=== PATIENT | male | born 2005 | race Caucasian/White ===

== ENCOUNTER 2024-09-12 04:42 | Emergency (ER) | payer OTHER, BC ==
[~2024-09-12] VITALS: Ht 190.5 cm; Wt 104.3 kg
[2024-09-12 04:53] VITALS: BP_SYST 124; PULSE 81; RESP 18; TEMP 98; O2SAT 98
[2024-09-12] MEDS: DIPHTH,PERTUSS(ACELL),TET VAC 0.5 ML VIAL (Tdap) I.M. ONE (05:20)
[2024-09-12 06:16] VITALS: BP_SYST 123; PULSE 78; RESP 20; TEMP 98; O2SAT 99
== END 2024-09-12 06:16 | disposition home or self-care (01) ==
LOC: SED 04:42
DX: S01.81XA Laceration without foreign body of other part of head, initial encounter (principal); Z23 Encounter for immunization; V89.2XXA Person injured in unspecified motor-vehicle accident, traffic, initial encounter; Y93.89 Activity, other specified; Y92.89 Other specified places as the place of occurrence of the external cause; Y99.8 Other external cause status
CPT/HCPCS: 70450-TC; 70486; 90715; 99285